=== PATIENT | female | born 1985 | race Caucasian/White ===

== ENCOUNTER 2018-09-11 18:42 | Observation (INO) | payer MEDICAID ==
[~2018-09-11] VITALS: Ht 174 cm; Wt 63.5 kg
[2018-09-11] MEDS ORDERED: TERBUTALINE SULFATE 1 MG/ML 1ML VIAL SC ONE (19:51)
[2018-09-11] MEDS ORDERED: TERBUTALINE SULFATE 1 MG/ML 1ML VIAL SC SCH (20:00)
[2018-09-11] MEDS ORDERED: PREN-96 PO (20:29)
== END 2018-09-11 20:54 | disposition home or self-care (01) | DRG 566 ==
LOC: LDRP 18:42
PROVIDERS: ADMIT Obstetrics & Gynecology; ATTEND Obstetrics & Gynecology
DX: O40.3XX0 Polyhydramnios, third trimester, not applicable or unspecified (principal); O24.419 Gestational diabetes mellitus in pregnancy, unspecified control; O09.523 Supervision of elderly multigravida, third trimester; Z3A.35 35 weeks gestation of pregnancy
CPT/HCPCS: 59025; 76818; 81002; 82948; 82962; G0378; J3105; 96372

== ENCOUNTER 2018-09-15 13:28 | Observation (INO) | payer MEDICAID ==
[~2018-09-15] VITALS: Ht 174 cm; Wt 77.1 kg
[~2018-09-15 13:28] MED LIST: PREN-96 PO
== END 2018-09-15 16:00 | disposition home or self-care (01) | DRG 566 ==
LOC: LDRP 13:28
PROVIDERS: ADMIT Specialist; ATTEND Specialist
DX: O24.419 Gestational diabetes mellitus in pregnancy, unspecified control (principal); O09.523 Supervision of elderly multigravida, third trimester; Z3A.35 35 weeks gestation of pregnancy
CPT/HCPCS: 59025; 76818; 81002; 82948; G0378

== ENCOUNTER 2018-09-18 18:53 | Observation (INO) | payer MEDICAID | END 2018-09-18 19:50 | disposition home or self-care (01) | DRG 566 | LOC: LDRP 18:53 | PROVIDERS: ADMIT Specialist; ATTEND Specialist | DX: O24.419 Gestational diabetes mellitus in pregnancy, unspecified control (principal); O26.893 Other specified pregnancy related conditions, third trimester; N89.8 Other specified noninflammatory disorders of vagina; O09.523 Supervision of elderly multigravida, third trimester; Z3A.36 36 weeks gestation of pregnancy | CPT/HCPCS: 59025; 76818; 81002; 82948; 82962; G0378 ==

== ENCOUNTER 2018-09-25 15:07 | Observation (INO) | payer MEDICAID | END 2018-09-25 19:25 | disposition home or self-care (01) | DRG 566 | LOC: LDRP 18:25 | PROVIDERS: ADMIT Obstetrics & Gynecology; ATTEND Obstetrics & Gynecology | DX: O24.419 Gestational diabetes mellitus in pregnancy, unspecified control (principal); O09.523 Supervision of elderly multigravida, third trimester; Z3A.37 37 weeks gestation of pregnancy | CPT/HCPCS: 59025; 76818; 81002; 82948; 82962; G0378 ==

== ENCOUNTER 2018-09-29 08:40 | Observation (INO) | payer MEDICAID | END 2018-09-29 09:40 | disposition home or self-care (01) | DRG 566 | LOC: LDRP 08:40 | PROVIDERS: ADMIT Obstetrics & Gynecology; ATTEND Obstetrics & Gynecology | DX: O24.419 Gestational diabetes mellitus in pregnancy, unspecified control (principal); O09.523 Supervision of elderly multigravida, third trimester; Z3A.37 37 weeks gestation of pregnancy | CPT/HCPCS: 59025; 76818; 81002; G0378 ==

== ENCOUNTER 2018-10-02 15:37 | Observation (INO) | payer MEDICAID | END 2018-10-06 12:00 | disposition home or self-care (01) | DRG 566 | LOC: LDRP 10-06 10:06 | PROVIDERS: ADMIT Specialist; ATTEND Specialist | DX: O24.419 Gestational diabetes mellitus in pregnancy, unspecified control (principal); O09.523 Supervision of elderly multigravida, third trimester; O40.3XX0 Polyhydramnios, third trimester, not applicable or unspecified; Z3A.38 38 weeks gestation of pregnancy | CPT/HCPCS: 59025; 76818; 81002; G0378 ==